=== PATIENT | male | born 1995 | race Caucasian/White ===

== ENCOUNTER 2019-01-08 16:38 | Emergency (ER) | payer OTHER ==
[~2019-01-08] VITALS: Ht 170.2 cm; Wt 92.0 kg
[2019-01-08] MEDS ORDERED: KETOROLAC 60 MG/2 ML VIAL (J1885) IM ONE (17:00)
--- NOTE | 2019-01-08 17:45 | REP ---
Clinical: Acute chest pain . Comparison: None . Technique: PA and lateral. Findings: The mediastinum and cardiac silhouette are normal. The lung quiñones are clear and without acute consolidation, effusion, or pneumothorax. The skeletal structures are intact and normal. Impression: 1. No acute cardiopulmonary process. Electronically Signed by Emmanuel Oviedo MD 01/08/2019 05:36 P
[2019-01-08 18:50] VITALS: BP 153/70
--- NOTE | 2019-01-08 21:14 | ECGEPIP ---
[facility] - ED Test Date: 2019-01-08 Pat Name: ANDERS HAYNES Department: Room: - Gender: Male Vp Global: ANDREINA : 1995 Requested By: Shelli Bhatt Order Number: [id number] Reading MD: Shelli Bhatt Measurements Intervals [place] Rate: 84 P: 67 NJ: 146 QRS: 17 QRSD: 92 T: 16 QT: 344 QTc: 407 Interpretive Statements SINUS RHYTHM NO PRIOR FOR COMPARISON Electronically Signed on 01-08-2019 21:13:53 EDT by Shelli Bhatt
== END 2019-01-08 19:23 | disposition home or self-care (01) ==
LOC: M ED 16:38
DX: R07.89 Other chest pain (principal)
CPT/HCPCS: 71046; 85379; 85652; 93005; 96372; 99284; J1885

== ENCOUNTER → 2021-02-06 | Outpatient (CLI) | payer OTHER ==
[~2021-02-06] MED LIST: ISOVUE-300 61% 50ML VIAL As Ordered ONE; LIDOCAINE 1% MDV 20ML VIAL As Ordered ONE; TRIAMCINOLONE ACETONIDE SUSP 40 MG/ML VIAL (J3301) As Ordered ONE
--- NOTE | 2021-02-06 14:50 | REP ---
INDICATION: LEFT HIP SPRAIN. COMPARISON: None TECHNIQUE: The procedure was performed by MIHAELA Scott, under the direct supervision of Dr. Goss. The benefits and risks of the procedure were explained to the patient, and an informed consent was obtained. Directly prior to the start of the procedure, a formal time-out was completed in the procedure room. The left femoral neck joint space was localized using fluoroscopic guidance. The skin was prepped and draped in a sterile fashion. Approximately 5 mL of 1% Lidocaine 10 mg/ml was used as a local anesthetic. Using fluoroscopic guidance, a #22 gauge spinal needle was inserted and advanced into the left femoral neck joint space. Approximately 1 mL of Isovue 300 was injected to verify placement. Ten mL of a solution containing 9 mL 1% lidocaine 10 mg/ml and 1 mL Kenalog 40 milligrams/milliliter was injected into the joint space. The needle was removed and hemostasis was achieved. FINDINGS: The patient tolerated the procedure well and there were no immediate complications. IMPRESSION: 1. Fluoroscopic guided left hip intra-articular pain injection.. 0.1 minutes of fluoroscopy time was utilized for this procedure. Some fluoroscopic images are performed with last image hold technology. These images require no additional radiation. <Electronically signed by Tania Elias > 02/06/21 1401 <Electronically signed by Jr Goss > 02/06/21 0906
== END ==
LOC: M RADPRO 12:56
PROVIDERS: ATTEND Physician Assistant Surgical
DX: S73.122D Ischiocapsular ligament sprain of left hip, subsequent encounter (principal); Y99.8 Other external cause status
CPT/HCPCS: 20610; 77002; J3301; Q9967

== ENCOUNTER → 2021-11-23 | Outpatient (REF) | LOC: M PLAIMG 09:30 | PROVIDERS: ATTEND Internal Medicine | DX: R06.02 Shortness of breath (principal) ==